=== PATIENT | male | born 1960 | race Caucasian/White ===

== ENCOUNTER 2022-01-30 08:22 | Emergency (ER) | payer MEDICARE, OTHER ==
[~2022-01-30] VITALS: Ht 170.2 cm; Wt 104.3 kg
[~2022-01-30 08:22] MED LIST: ACET-3457; CLON1TAB1; METH-1878 PO
[2022-01-30 08:28] VITALS: BP 145/80
--- NOTE | 2022-01-30 08:32 | NUR ---
pt ambulated to bed 12
--- NOTE | 2022-01-30 08:43 | NUR ---
pt c/o sob wih anxiety since this am, breathing unlabored. 92% on ra. placed on bedside monitor. pending er md dillon.
[2022-01-30] MEDS ORDERED: ALBUTEROL SULFATE/IPRATROPIU 3 ML SOL IH ONE (09:05)
[2022-01-30] MEDS ORDERED: KETOROLAC 30 MG/ML VIAL IM ONE (09:05)
[2022-01-30 09:43] LABS: BASOPHILS % (AUTO) 0.4 % (0.0-2.0); EOSINOPHILS % (AUTO) 0.1 % (0.0-4.0); HEMATOCRIT 37.1 % (36-52); HEMOGLOBIN 12.3 g/dL (12.0-18.0); LYMPHOCYTES # (AUTO) 0.8 K/uL (2.0-11.5); LYMPHOCYTES % (AUTO) 12.9 % (20.5-51.1); MEAN CORPUSCULAR HEMOGLOBIN 28 pg (27-31); MEAN CORPUSCULAR HGB CONC 33 g/dL (33-37); MEAN CORPUSCULAR VOLUME 83.6 fL (80-94); MONOCYTES # (AUTO) 0.4 K/uL (0.8-1.0); MONOCYTES % (AUTO) 7.2 % (1.7-9.3); NEUTROPHILS # (AUTO) 4.8 K/uL (1.8-7.7); NEUTROPHILS % (AUTO) 79.4 % (42.2-75.2); PLATELET COUNT (AUTO) 403 K/uL (140-450); RED BLOOD CELL COUNT(AUTO) 4.43 MIL/uL (4.20-6.10)
[2022-01-30 10:11] LABS: ALBUMIN 3.3 g/dL (3.4-5.0); CARBON DIOXIDE 26.1 mmol/L (21-32); POTASSIUM 4.1 mmol/L (3.5-5.1); TOTAL BILIRUBIN 0.4 mg/dL (0.0-1.0)
[2022-01-30] MEDS ORDERED: PRED20TA5 PO (10:54)
[2022-01-30] MEDS ORDERED: AZIT250T4 PO (10:54)
[2022-01-30 12:51] VITALS: BP 143/70
--- NOTE | 2022-01-30 12:51 | NUR ---
Patient discharged with v/s stable. Written and verbal after care instructions given and explained. Patient alert, oriented and verbalized understanding of instructions. Ambulatory with steady gait. All questions addressed prior to discharge. ID band removed. Patient advised to follow up with PMD. Rx of azithromycin, prednisone (sent) given. Patient educated on indication of medication including possible reaction and side effects. Opportunity to ask questions provided and answered. copy of labs and imaging given in packet
--- NOTE | 2022-01-30 12:52 | NUR ---
Dunia mccoy in ED - 01/30/22 at 1252 by [id number] Patient discharged with v/s stable. Written and verbal after care instructions given and explained. Patient verbalized understanding. Ambulatory with steady gait. All questions addressed prior to discharge. Advised to follow up with PMD.
== END 2022-01-30 12:51 | disposition home or self-care (01) ==
LOC: MED 08:22
DX: J40 Bronchitis, not specified as acute or chronic (principal); Z20.822 Contact with and (suspected) exposure to COVID-19; I10 Essential (primary) hypertension; F17.210 Nicotine dependence, cigarettes, uncomplicated
CPT/HCPCS: 36415; 71045; 80053; 83880; 84484; 85025; 87426; 93005; 94640; 96372; 99285; J1885

== ENCOUNTER 2022-02-09 10:45 | Emergency (ER) | payer MEDICARE, OTHER ==
[~2022-02-09] VITALS: Ht 170.2 cm; Wt 104.3 kg
[2022-02-09 10:45] VITALS: BP 143/69
[~2022-02-09 10:45] MED LIST changes: +AZIT250T4 PO; +PRED20TA5 PO
--- NOTE | 2022-02-09 10:52 | NUR ---
PT W/C ASSISTED TO ER BED 11
--- NOTE | 2022-02-09 10:58 | NUR ---
jose miguel swabbed at this time
--- NOTE | 2022-02-09 11:00 | NUR ---
61 y/o male bib friend, wheelchair assisted to bed, c/o general weakness, headache, cough, worsening sob this morning with anxiety. pt states he was seen here on 01/30 for acute bronchitis. denies nausea, vomiting, diarrhea. skin is pink/warm/dry, pt has redness on buttocks area and bl lower legs. a&o x4. lungs clear bl, heart rate even and regular. pt denies dysuria, hematuria, urinary frequency or retention, or anyone sick in the household with the same symptoms. pt states pain is 10/10 at this time. vss. patient positioned for comfort. hob elevated. bed down. ermd made aware of pt. pmh: anxiety, htn nka med: denies
--- NOTE | 2022-02-09 11:09 | NUR ---
RAD AT BEDSIDE
--- NOTE | 2022-02-09 11:11 | NUR ---
X-Ray at bedside.
[2022-02-09 11:57] LABS: BASOPHILS % (AUTO) 0.7 % (0.0-2.0); EOSINOPHILS % (AUTO) 0.5 % (0.0-4.0); HEMATOCRIT 38.1 % (36-52); HEMOGLOBIN 12.5 g/dL (12.0-18.0); MEAN CORPUSCULAR HEMOGLOBIN 28 pg (27-31); MEAN CORPUSCULAR HGB CONC 33 g/dL (33-37); MEAN CORPUSCULAR VOLUME 83.8 fL (80-94); MONOCYTES # (AUTO) 0.5 K/uL (0.8-1.0); MONOCYTES % (AUTO) 6.7 % (1.7-9.3); NEUTROPHILS # (AUTO) 5.7 K/uL (1.8-7.7); NEUTROPHILS % (AUTO) 78.1 % (42.2-75.2); PLATELET COUNT (AUTO) 364 K/uL (140-450); RED BLOOD CELL COUNT(AUTO) 4.55 MIL/uL (4.20-6.10); RED CELL DISTRIBUTION WIDTH 15.6 % (11.6-13.7); WHITE BLOOD COUNT (AUTO) 7.3 K/uL (4.8-10.8)
[2022-02-09] MEDS ORDERED: LORazepam 1 MG TAB PO ONE (12:10)
[2022-02-09 12:15] LABS: ALBUMIN 3.4 g/dL (3.4-5.0); ANION GAP 7.2 (8-16); CARBON DIOXIDE 33.2 mmol/L (21-32); POTASSIUM 4.4 mmol/L (3.5-5.1); TOTAL BILIRUBIN 0.3 mg/dL (0.0-1.0)
[2022-02-09] MEDS ORDERED: [UNRECOGNIZED DRUG - CODE] PO (12:41)
--- NOTE | 2022-02-09 13:04 | NUR ---
Patient discharged with v/s stable. Written and verbal after care instructions FOR SOB AND LIVING W/ ANXIETY given and explained. Patient alert, oriented and verbalized understanding of instructions. Ambulatory with steady gait. All questions addressed prior to discharge. ID band removed. Patient advised to follow up with PMD. Rx of HYDROXYZINE HCL given. Opportunity to ask questions provided and answered.
== END 2022-02-09 13:05 | disposition home or self-care (01) ==
LOC: MED 10:45
DX: F41.9 Anxiety disorder, unspecified (principal); Z20.822 Contact with and (suspected) exposure to COVID-19; R06.02 Shortness of breath; J45.909 Unspecified asthma, uncomplicated; I10 Essential (primary) hypertension; F17.200 Nicotine dependence, unspecified, uncomplicated
CPT/HCPCS: 36415; 71045; 80053; 83880; 84484; 85025; 87426; 93005; 99285; Q0092

== ENCOUNTER 2022-03-27 21:49 | Emergency (ER) | payer OTHER ==
[~2022-03-27] VITALS: Ht 172.7 cm; Wt 106.6 kg
[~2022-03-27 21:49] MED LIST changes: +[UNRECOGNIZED DRUG - CODE] PO
[2022-03-27 22:30] VITALS: BP 176/84
--- NOTE | 2022-03-27 22:33 | NUR ---
TO LOBBY A/W BED AMBULATORY
--- NOTE | 2022-03-28 01:17 | NUR ---
PT TAKEN TO BED 3
[2022-03-28] MEDS ORDERED: CLON0.2T16 PO (01:26)
[2022-03-28] MEDS ORDERED: MORPHINE SULFATE 4 MG/ML SYR IVP ONE (01:40)
[2022-03-28] MEDS ORDERED: ONDANSETRON 4 MG/2 ML VIAL IVP ONE (01:40)
[2022-03-28] MEDS ORDERED: ALBUTEROL SULFATE/IPRATROPIU 3 ML SOL IH ONE (02:05)
[2022-03-28] MEDS ORDERED: MORPHINE SULFATE 4 MG/ML SYR IM ONE (03:05)
[2022-03-28] MEDS ORDERED: ONDANSETRON 4 MG ODT PO ONE (03:10)
--- NOTE | 2022-03-28 03:42 | NUR ---
Patient resting with eyes closed, snoring. Patient has no c/p pain or s/s of distress, skin intact, a/ox4.
[2022-03-28 04:47] LABS: BASOPHILS % (AUTO) 0.3 % (0.0-2.0); EOSINOPHILS % (AUTO) 0.2 % (0.0-4.0); HEMATOCRIT 32.3 % (36-52); HEMOGLOBIN 10.9 g/dL (12.0-18.0); LYMPHOCYTES # (AUTO) 0.5 K/uL (2.0-11.5); LYMPHOCYTES % (AUTO) 5.3 % (20.5-51.1); MEAN CORPUSCULAR HEMOGLOBIN 28 pg (27-31); MEAN CORPUSCULAR HGB CONC 34 g/dL (33-37); MONOCYTES # (AUTO) 0.5 K/uL (0.8-1.0); MONOCYTES % (AUTO) 5.7 % (1.7-9.3); NEUTROPHILS # (AUTO) 8.3 K/uL (1.8-7.7); PLATELET COUNT (AUTO) 262 K/uL (140-450); RED BLOOD CELL COUNT(AUTO) 3.94 MIL/uL (4.20-6.10); RED CELL DISTRIBUTION WIDTH 13.5 % (11.6-13.7); WHITE BLOOD COUNT (AUTO) 9.4 K/uL (4.8-10.8)
--- NOTE | 2022-03-28 04:51 | NUR ---
ER physician verbally informed of 0450 vital signs. ER physician verbalized understanding, no new orders.
[2022-03-28 05:06] LABS: ALBUMIN 2.7 g/dL (3.4-5.0); ASPARTATE AMINOTRANSFERASE 27 U/L (15-37); CARBON DIOXIDE 28.8 mmol/L (21-32); CHLORIDE 84 mmol/L (98-107); CREATININE 0.9 mg/dL (0.6-1.3); GFR ARICAN-AMERICAN 110 mL/min (>90); GLUCOSE 113 mg/dL (74-106); LIPASE 39 U/L (73-393); POTASSIUM 4.8 mmol/L (3.5-5.1); TOTAL BILIRUBIN 0.5 mg/dL (0.0-1.0); UREA NITROGEN, BLOOD 12 mg/dL (7-18)
[2022-03-28 05:08] LABS: NEUTROPHILS % (AUTO) 88.5 % (42.2-75.2)
[2022-03-28 05:19] LABS: SODIUM SERUM 118 mmol/L (136-145)
--- NOTE | 2022-03-28 05:50 | NUR ---
Informed by patient, "I don't want to stay. I have to go do heroin." Patient educated on need to stay and be admitted. Patient still declines stay in hospital and states, "No. I want to go. I have to go do heroin or I will be in pain." Patient signed AMA form. Dr. Haddad informed by patient of patinet wanting to leave AMA. Patient and Dr. Haddad signed AMA form.
[2022-03-28 05:55] VITALS: BP 157/85
--- NOTE | 2022-03-28 05:56 | NUR ---
Patient does not wish to proceed with medical care recommended by Dr. Haddad. Patient given information related to possible complications, up to and including , which could occur as a result of leaving hospital at this time. Patient verbalizes understanding of risks involved leaving against medical advice. Patient has signed AMA form.
== END 2022-03-28 05:42 | disposition left against medical advice (07) ==
LOC: MED 21:49
DX: E87.1 Hypo-osmolality and hyponatremia (principal); R51.9 Headache, unspecified; R07.89 Other chest pain; J45.909 Unspecified asthma, uncomplicated; I10 Essential (primary) hypertension; F41.9 Anxiety disorder, unspecified; F17.210 Nicotine dependence, cigarettes, uncomplicated; Z79.899 Other long term (current) drug therapy
CPT/HCPCS: 36415; 71045; 80053; 83690; 84484; 85025; 93005; 94640; 96372; 99285; J2270; Q0092; Q0162

== ENCOUNTER 2022-05-13 09:35 | Emergency (ER) | payer MEDICARE, OTHER ==
[~2022-05-13] VITALS: Ht 175.3 cm; Wt 90.7 kg
[~2022-05-13 09:35] MED LIST changes: -ACET-3457; -AZIT250T4 PO; +CLON0.2T16 PO; -CLON1TAB1; -METH-1878 PO; -PRED20TA5 PO
[2022-05-13 09:49] VITALS: BP 134/65
--- NOTE | 2022-05-13 11:38 | NUR ---
PT AMBULATED WITH STEADY GAIT TO BED 3
--- NOTE | 2022-05-13 14:30 | NUR ---
Patient discharged with v/s stable. Written and verbal after care instructions given and explained. Patient verbalized understanding. Ambulatory with steady gait. All questions addressed prior to discharge. Advised to follow up with PMD.
== END 2022-05-13 14:34 | disposition home or self-care (01) ==
LOC: MED 09:35
DX: I73.9 Peripheral vascular disease, unspecified (principal); J45.909 Unspecified asthma, uncomplicated; I10 Essential (primary) hypertension; F17.210 Nicotine dependence, cigarettes, uncomplicated; Z79.899 Other long term (current) drug therapy
CPT/HCPCS: 93922; 93925; 93970; 99284; Q0092

== ENCOUNTER 2022-06-10 13:02 | Emergency (ER) | payer OTHER ==
[~2022-06-10] VITALS: Ht 170.2 cm; Wt 119.7 kg
[2022-06-10 13:09] VITALS: BP 175/78
--- NOTE | 2022-06-10 13:24 | NUR ---
PT W/C ASSISTED TO ER BED 1
--- NOTE | 2022-06-10 13:45 | NUR ---
61 Y/O MALE C/O 2 LARGE ULCERS TO BILATERAL LATERAL LOWER EXTREMETIES X1 MONTH, +ODOROUS +FULL THICKNESS TO BOTH BILATERAL ULERS. PT ALSO HAS SMALL ULCERS TO BILATERAL UPPER LEGS AND BUTTOCK. +1 PITTING EDEMA TO BILATERAL LEGS. PT REPORTS SOB THIS MORNING AND TOOK HIS INHALER. DENIES SOB NOW. SPO2 98% RA. ULCERS TO UPPER LEG +BLOODY DRAINAGE. DENIES FEVER/CHILLS. PT STATES "IT SMELLS LIKE GANGRENE". PT WAS SEEN HERE 05/13/22 AND WAS D/C WITH DIAGNOSIS OF PVD. PT DENIES SEEING A DOCTOR SINCE. PT REPORTS DAILY HEROIN USE, LAST USE THIS AM. PT IN GOWN, ON CARDIAC/O2 MONITOR. PT A/O X4 WITH EVEN AND UNLABORED RESPIRATIONS PMH: HTN, HEP B, ANXIETY, ASTHMA NKDA
[2022-06-10] MEDS ORDERED: VANCOMYCIN 1,000 MG in DEXTROSE 5% 250 ML IV ONE (14:15)
--- NOTE | 2022-06-10 14:32 | NUR ---
UNABLE TO OBTAIN IV ACCESS. DR CURTIS MADE AWARE. ULTRASOUND SET UP FOR ERMD
--- NOTE | 2022-06-10 15:00 | NUR ---
Patient noted to have existing wounds upon arrival to ER. Photos taken of wound and placed in chart. WONDS NOT COVERED PER DR CURTIS. Physician informed.
[2022-06-10 16:36] LABS: BASOPHILS # (AUTO) 0.1 K/uL (0.00-0.22); BASOPHILS % (AUTO) 0.9 % (0.0-2.0); EOSINOPHILS # (AUTO) 0.1 K/uL (0-0.4); HEMATOCRIT 32.5 % (36-52); HEMOGLOBIN 10.9 g/dL (12.0-18.0); LYMPHOCYTES # (AUTO) 0.7 K/uL (2.0-11.5); LYMPHOCYTES % (AUTO) 6.1 % (20.5-51.1); MEAN CORPUSCULAR HEMOGLOBIN 27 pg (27-31); MEAN CORPUSCULAR HGB CONC 34 g/dL (33-37); MEAN CORPUSCULAR VOLUME 79.5 fL (80-94); MONOCYTES # (AUTO) 0.5 K/uL (0.8-1.0); MONOCYTES % (AUTO) 4.2 % (1.7-9.3); NEUTROPHILS # (AUTO) 10.4 K/uL (1.8-7.7); NEUTROPHILS % (AUTO) 87.8 % (42.2-75.2); PLATELET COUNT (AUTO) 333 K/uL (140-450); RED BLOOD CELL COUNT(AUTO) 4.08 MIL/uL (4.20-6.10); RED CELL DISTRIBUTION WIDTH 14.3 % (11.6-13.7); WHITE BLOOD COUNT (AUTO) 11.8 K/uL (4.8-10.8)
[2022-06-10] MEDS ORDERED: VANCOMYCIN 1,000 MG VIAL ONE (16:38)
[2022-06-10 16:59] LABS: ANION GAP 10.9 (8-16); CARBON DIOXIDE 30.1 mmol/L (21-32); TOTAL BILIRUBIN 0.4 mg/dL (0.0-1.0)
[2022-06-10] MEDS ORDERED: HYDROcodone/APAP 10/325 MG 1 TAB TAB PO PRN (18:55)
--- NOTE | 2022-06-10 19:04 | NUR ---
PT REFUSING TO SIGN CONSENT FOR TRANSFER AND STATED HE WANTS TO LEAVE AMA. DR CURTIS AT BEDSIDE EXPLAINING AMA
--- NOTE | 2022-06-10 19:05 | NUR ---
Patient does not wish to proceed with medical care recommended by KIRSTEN. Patient given information related to possible complications, up to and including , which could occur as a result of leaving hospital at this time. Patient verbalizes understanding of risks involved leaving against medical advice. Patient has signed AMA form.
[2022-06-10] MEDS ORDERED: CEPH-588 PO (19:07)
[2022-06-10] MEDS ORDERED: SULF-58 PO (19:07)
--- NOTE | 2022-06-10 19:15 | NUR ---
REPORT GIVEN TO TONJA MALDONADO, TRANSFER OF CARE AT THIS TIME
[2022-06-10 19:26] VITALS: BP 187/90
--- NOTE | 2022-06-10 19:28 | NUR ---
Patient discharged with v/s stable. Written and verbal after care instructions given and explained. Patient alert, oriented and verbalized understanding of instructions. Ambulatory with steady gait. All questions addressed prior to discharge. ID band removed. Patient advised to follow up with PMD. Rx SENT TO PHARMACY. Patient educated on indication of medication including possible reaction and side effects. Opportunity to ask questions provided and answered.
== END 2022-06-10 19:28 | disposition left against medical advice (07) ==
LOC: MED 13:02
DX: L03.116 Cellulitis of left lower limb (principal); L03.115 Cellulitis of right lower limb; I73.9 Peripheral vascular disease, unspecified; E87.1 Hypo-osmolality and hyponatremia; F11.10 Opioid abuse, uncomplicated; Z20.822 Contact with and (suspected) exposure to COVID-19; J45.909 Unspecified asthma, uncomplicated; I10 Essential (primary) hypertension; Z79.899 Other long term (current) drug therapy; Z71.6 Tobacco abuse counseling; F41.9 Anxiety disorder, unspecified; F17.210 Nicotine dependence, cigarettes, uncomplicated
CPT/HCPCS: 36415; 80053; 83605; 85025; 87040; 87426; 96365; 96366; 99285; J3370; 87186

== ENCOUNTER 2022-06-21 19:12 | Inpatient (IN) | payer OTHER ==
[~2022-06-21] VITALS: Ht 170.2 cm; Wt 115.2 kg
[~2022-06-21 19:12] MED LIST changes: +CEPH-588 PO; +SULF-58 PO
[2022-06-21 19:19] VITALS: BP 158/74
--- NOTE | 2022-06-21 19:36 | NUR ---
Dunia mccoy in [facility] - 06/21/22 at 1938 by CHRISS PT TAKEN TO BED 7
--- NOTE | 2022-06-21 19:48 | NUR ---
PT TAKEN TO BED 7
--- NOTE | 2022-06-21 19:50 | NUR ---
Dr. Adhikari examining patient.
[2022-06-21] MEDS ORDERED: ASPIRIN 325 MG TAB PO ONE (20:05)
--- NOTE | 2022-06-21 20:10 | NUR ---
LAB UNABLE TO DRAW LABS. ERMD NOTIFIED.
--- NOTE | 2022-06-21 20:15 | NUR ---
UNABLE TO START PIV D/T PT BEING A HARD STICK. ERMD NOTIFIED. US PIV TO BE INSERTED.
--- NOTE | 2022-06-21 21:13 | NUR ---
DR. GRIGGS AT BEDSIDE
[2022-06-21] MEDS ORDERED: ALBUTEROL SULFATE/IPRATROPIU 3 ML SOL IH ONE (21:40)
--- NOTE | 2022-06-21 21:40 | NUR ---
Respiratory Therapist at bedside for respiratory intervention.
[2022-06-21 21:41] LABS: BASOPHILS # (AUTO) 0.1 K/uL (0.00-0.22); BASOPHILS % (AUTO) 1.2 % (0.0-2.0); EOSINOPHILS # (AUTO) 0.2 K/uL (0-0.4); EOSINOPHILS % (AUTO) 2.2 % (0.0-4.0); HEMATOCRIT 28.1 % (36-52); HEMOGLOBIN 9.2 g/dL (12.0-18.0); LYMPHOCYTES # (AUTO) 1.2 K/uL (2.0-11.5); LYMPHOCYTES % (AUTO) 11.6 % (20.5-51.1); MEAN CORPUSCULAR HEMOGLOBIN 26 pg (27-31); MEAN CORPUSCULAR HGB CONC 33 g/dL (33-37); MEAN CORPUSCULAR VOLUME 79.5 fL (80-94); MONOCYTES # (AUTO) 0.9 K/uL (0.8-1.0); MONOCYTES % (AUTO) 8.3 % (1.7-9.3); NEUTROPHILS # (AUTO) 8.1 K/uL (1.8-7.7); NEUTROPHILS % (AUTO) 76.7 % (42.2-75.2); PLATELET COUNT (AUTO) 370 K/uL (140-450); RED BLOOD CELL COUNT(AUTO) 3.53 MIL/uL (4.20-6.10); RED CELL DISTRIBUTION WIDTH 13.9 % (11.6-13.7); WHITE BLOOD COUNT (AUTO) 10.6 K/uL (4.8-10.8)
[2022-06-21 22:05] LABS: ALBUMIN 2.5 g/dL (3.4-5.0); ANION GAP 10.2 (8-16); CARBON DIOXIDE 31.9 mmol/L (21-32); CREATININE 1.2 mg/dL (0.6-1.3); POTASSIUM 5.1 mmol/L (3.5-5.1); TOTAL BILIRUBIN 0.2 mg/dL (0.0-1.0)
--- NOTE | 2022-06-21 23:15 | NUR ---
Pt does not wish to remove his pants. Pt in hospital gown.
[2022-06-21] MEDS ORDERED: NACL 0.9% 1,000 ML IV ONE (23:30)
[2022-06-22] MEDS ORDERED: ACETAMINOPHEN 325 MG TAB PO PRN (00:50)
[2022-06-22] MEDS ORDERED: HYDROcodone/APAP 5/325 MG 1 TAB TAB PO PRN (00:50)
[2022-06-22] MEDS ORDERED: LORazepam 2 MG/ML VIAL IVP PRN (00:50)
[2022-06-22] MEDS ORDERED: ONDANSETRON 4 MG/2 ML VIAL IVP PRN (00:50)
--- NOTE | 2022-06-22 03:03 | NUR ---
PT UNABLE TO REMEMBER MEDICATION AND DOSAGE.
--- NOTE | 2022-06-22 04:40 | NUR ---
Patient noted to have existing wounds upon arrival to ER. Photos taken of wound and placed in chart. Wound covered with dressing. Physician informed.
--- NOTE | 2022-06-22 07:10 | NUR ---
RECEIVED REPORT FROM ER NURSE. NO SIGNS OF DISTRESS OR LABORED BREATHING. PT IS A&OX4, LUNGS SOUND HAVE SOME WHEEZING BUT PT IS ON RA, VITALS ARE STABLE AT THIS TIME, AND SKIN HAS ULCERS ALL OVER. PT HAS ULCER ON HIS BLE, BUTTOCKS AND LOWER BACK. PT HAS A 18G IV IN HIS R IJ THAT IS PATEN, INTACT AND SALINE LOCKED. PT TAKES METHADONE AT HOME. TWO SIDE RAILS UP, CALL LIGHT WITHIN REACH, BED IN LOW POSITION, AND SAFETY MEASURE MET AT THIS TIME. WILL CONTINUE TO MONITOR.
[2022-06-22 08:00] VITALS: BP 176/54
[2022-06-22] MEDS: ENOXAPARIN 40 MG/0.4 ML SYR SUBQ SCH (08:47)
--- NOTE | 2022-06-22 10:37 | NUR ---
PATIENT HAS BEEN SCREENED AND CATEGORIZED LOW NUTRITION RISK. PATIENT WILL BE SEEN WITHIN 7 DAYS OF ADMISSION. 06/29/22 REVIEWED BY AISHA PA RD
[2022-06-22] MEDS: amLODIPine 5 MG TAB PO SCH (10:53)
[2022-06-22] MEDS: MORPHINE SULFATE 2 MG/ML SYR IVP PRN ×2 (11:33→20:30)
--- NOTE | 2022-06-22 11:52 | NUR ---
DC PLANNIN YRS OLD MALE PATIENT WAS ADMITTED FROM HOME WITH A DX OF CHEST PAIN. PATIENT HAS A HX OF HTN , PVD PRIOR HISTORY OF IV DRUG USE. CXR SHOWED NO RADIOGRAPHIC EVIDENCE OF ACUTE CARDIOPULMONARY DISEASE. RAPID COVID TEST NEGATIVE. TROPONIN NEGATIVE X 2 ADMINISTERED IVF, MORPHINE FOR CHEST PAIN. CONSULTED WITH CARDIO. DC PLAN TO GO HOME WHEN STABLE. CM TO FOLLOW CALLED [facility] [phone] SPOKE WITH HAMMAD AGUAYO UPDATED PT'S CLINICAL AND FAXED THE PAPERWORK TO [phone]. Addendum: 06/24/22 at 1600 by Sylwia Carias RN DC PLANNING: PATIENT HAS A DC ORDER TO GO HOME WITH HOME HEALTH FOR WOUND CARE. FAXED TO [facility] [phone] CM TO FOLLOW
[2022-06-22 12:00] VITALS: BP 157/73
[2022-06-22 16:00] VITALS: BP 157/76
[2022-06-22] MEDS: METHADONE 10 MG TAB PO SCH (16:37)
[2022-06-22] MEDS ORDERED: VANCOMYCIN PER PHARMACY MC PRN (18:05)
[2022-06-22 18:12] LABS: ALBUMIN 2.8 g/dL (3.4-5.0); ANION GAP 12.6 (8-16); CARBON DIOXIDE 28.7 mmol/L (21-32); CREATININE 1.1 mg/dL (0.6-1.3); POTASSIUM 5.3 mmol/L (3.5-5.1); TOTAL BILIRUBIN 0.2 mg/dL (0.0-1.0)
--- NOTE | 2022-06-22 19:15 | NUR ---
RECEIVED PT FROM DAYSHIFT NURSE FOR CONTINUITY OF CARE. PT ALERT AND ORIENTED X 4, ON ROOM AIR. MULTIPLE WOUNDS ON BILATERAL BUTTOCKS, BILATERAL LOWER LEGS AND R TOE.PT SR ON TELE. IV ON R IJ G 18. PT IS STABLE. POC DISCUSSED.ALL PRECAUTIONS IN PLACE. WILL CONTINUE TO MONITOR.
[2022-06-22 20:00] VITALS: BP 147/64
[2022-06-22] MEDS ORDERED: cefTRIAXone 2,000 MG in DEXTROSE 5% 100 ML IV SCH ×2 (20:00→20:30)
--- NOTE | 2022-06-22 20:35 | NUR ---
PT COMPLAINING OF PAIN ON BACK 02/15. PRN MORPHINE GIVEN.PT TOLERATED WELL.WILL CONTINUE TO MONITOR.
[2022-06-22] MEDS: VANCOMYCIN HCL 1.25 GM in DEXTROSE 5% 250 ML IV SCH (21:27)
--- NOTE | 2022-06-22 21:30 | NUR ---
PT AMBULATED WITH ASSIST TO RESTROOM. PT TOLERATE DWELL. WILL CONTINUE TO MONITOR.
[2022-06-23] VITALS (7 sets, daily range): BP systolic 122–169; BP diastolic 65–78
--- NOTE | 2022-06-23 | NUR ---
[employer] INFORMED ME THAT PATIENT DOESN'T TO DO THE CT TODAY.AND WANTS TO DO IT IN THE MORNING INSTEAD.
--- NOTE | 2022-06-23 01:00 | NUR ---
PATIENT WAS PLACED ON RECLINER FOR COMFORT.
--- NOTE | 2022-06-23 02:15 | NUR ---
PATIENT WANTS TO BE PLACED BACK TO BED. PT ASSISTED. PT TOLERATED WELL.ALL PRECAUTIONS IN PLACE.
[2022-06-23] MEDS: MORPHINE SULFATE 2 MG/ML SYR IVP PRN ×2 (02:29→23:22)
--- NOTE | 2022-06-23 02:40 | NUR ---
PT COMPLAINING OF PAIN ON BACK 02/15. PRN MORPHINE GIVEN.PT TOLERATED WELL.WILL CONTINUE TO MONITOR.
--- NOTE | 2022-06-23 03:55 | NUR ---
PATIENT IS RESTLESS. PRN ATIVAN GIVEN. PT TOLERATED WELL. O2 SAT AT 97%.
--- NOTE | 2022-06-23 05:54 | NUR ---
AUTOMATED WEAVER INFORMED ME THAT PATIENT DOESN'T WANT TO GET BLOOD DRAWN. EXPLAINED IMPORTANCE OF BLOOD DRAW. WILL CONTINUE TO MONITOR.PT VERBALIZED UNDERSTANDING.
--- NOTE | 2022-06-23 07:30 | NUR ---
RECEIVED BEDSIDE REPORT FROM NIGHTSHIFT ERICA YOUNG FOR CONTINUITY OF CARE. PT IS A&OX4, ON ROOM AIR. PT IS RESTING W/O S/S OF DISTRESS. PT HAS MIDLINE ON THE RIGHT UPPER ARM, PATENT & INTACT. PTS BED IS IN LOWEST POSITION, CALL LIGHT WITHIN REACH.
[2022-06-23] MEDS ORDERED: METHADONE 10 MG TAB PO SCH (09:00)
[2022-06-23] MEDS: ENOXAPARIN 40 MG/0.4 ML SYR SUBQ SCH (09:11)
[2022-06-23] MEDS: amLODIPine 5 MG TAB PO SCH (09:17)
[2022-06-23] MEDS: ASPIRIN 81 MG TAB.CHEW PO SCH (09:18)
[2022-06-23] MEDS: METHADONE 10 MG TAB PO SCH (09:18)
[2022-06-23] MEDS: VANCOMYCIN HCL 1.25 GM in DEXTROSE 5% 250 ML IV SCH ×2 (09:18→21:00)
--- NOTE | 2022-06-23 15:17 | NUR ---
DC PLANNING SW MET WITH PT AT BEDSIDE TO COMPLETE ASSESSMENT. PT REPORTS RESIDING ALONE AT THE ADDRESS LISTED ON FILE. PT IDENTIFIED NAHUM MATTHEWER, AND DEJAN LOWE, BROTHER, EMERGENCY CONTACTS. PATIENT REPORTS MEETING WITH PCP, DR SEARS, NEEDED, LAST VISIT 1 WEEK AGO. PT REPORTS MEDICATION COMPLIANCE AND DENIES BARRIERS IN ACCESS TO MEDICATIONS. PATIENT REPORTS MEDICATION IS DELIVERED TO HIS HOME FROM [facility] IN [place]. PATIENT REPORTS BEING AMBULATORY WITH NO DME REPORTED. PATIENT REPORTS THAT HE REQUIRES ASSISTANCE WITH ADL'S. PATIENT HAS [facility] CAREGIVER, ROSEMARY WHO PROVIDES CARE M-SA FOR 3-4 HRS/DAILY. PT REPORTS HE RECEIVES ROUGHLY 60HRS/MONTH. PT DENIES MH/SA HX. PT DENIES HIS OF DIABETES, DIALYSIS [place], SNF PLACEMENT AND HH SERVICES. PT REPORTS ADEQUATE FOOD IN THE HOME. PT REPORTS DC PLAN IS TO RETURN HOME WITH FRIEND S OR FAMILY PROVIDING TRANSPORTATION, WHEN MEDICALLY STABLE. SW INQUIRED ON RESOURCES NEEDED, PT DECLINED. Addendum: 06/23/22 at 1518 by Jesus BARRY Amended: Links added.
--- NOTE | 2022-06-23 19:25 | NUR ---
ENDORSED PT TO NIGHTSHIFT ERICA CONTRERAS. PT IN STABLE CONDITION, NO S/S OF DISTRESS.
--- NOTE | 2022-06-23 19:26 | NUR ---
RECD. RESTING IN BED, AWAKE, A/OX4, AMBULATORY TO THE BATHROOM RESPIRATION EVEN AND UNLABORED. IV OF NS INFUSING AT 10 ML/HR, RIGHT UPPER ARM MIDLINE. ON IV ANTIBIOTICS. NO APPETITE TO EAT. ENCOURAGED PATIENT TO EAT DINNER THAT IS AT THE BEDSIDE TABLE BUT REFUSED, STATED HE WANTS BURRITO. DENIES PAIN 0/10.
--- NOTE | 2022-06-23 20:00 | NUR ---
Patient's Plan of Care was discussed and reviewed with PROJECT MANAGEMENT INSTRUCTOR: BEN FINN
--- NOTE | 2022-06-23 20:27 | NUR ---
INFORMED DR. STEVENSON, TO PLEASE ORDER BENADRYL FOR THIS PT BECAUSE IN ER WHEN THEY GIVE VANCOMYCIN PT GETS ITCHY AND PT DOES NOT LIKE TO TAKE IT TONIGHT WITHOUT BENADRYL. IT IS THE FIRST TIME PATIENT GET VANCOMYCIN. Addendum: 06/24/22 at 0404 by Lori Allison LVN CORRECTION: THIS NOTES DOES NOT BELONG TO THIS PATIENT.
--- NOTE | 2022-06-24 | NUR ---
SLEEPING COMFORTABLY IN BED, RESPIRATION EVEN AND UNLABORED.
--- NOTE | 2022-06-24 03:55 | NUR ---
WITH ANXIETY, RESTLESSNESS. MEDICATED WITH ATIVAN PER MD ORDER BY ERICA ADAIR.
[2022-06-24 04:00] VITALS: BP 167/79
--- NOTE | 2022-06-24 04:55 | NUR ---
NO ANXIETY NOTED, SLEEPING COMFORTABLY IN BED.
--- NOTE | 2022-06-24 07:00 | NUR ---
CONDITION REMAIN STABLE. WILL ENDORSE TO AM NURSE FOR CONTINUITY OF CARE.
[2022-06-24 08:00] VITALS: BP 173/77
[2022-06-24] MEDS: VANCOMYCIN HCL 1.25 GM in DEXTROSE 5% 250 ML IV SCH (09:11)
[2022-06-24] MEDS: ASPIRIN 81 MG TAB.CHEW PO SCH (09:15)
[2022-06-24] MEDS: amLODIPine 5 MG TAB PO SCH (09:16)
[2022-06-24] MEDS: METHADONE 10 MG TAB PO SCH (09:17)
[2022-06-24] MEDS: ENOXAPARIN 40 MG/0.4 ML SYR SUBQ SCH (09:18)
--- NOTE | 2022-06-24 09:45 | NUR ---
WOUND CARE NOTE: WOUND ASSESSMENT DONE TO THIS 61 YO PT. ADMITTED WITH MULTIPLE CHRONIC WOUNDS TO BLE. PT ALSO ADMITTED WITH A PRESSURE INJURY STAGE 2 TO COCCYX, PER PT. MAINLY FROM FRICTION AND SITTING UP TOO LONG. PER PT. HE IS CONTINENT OF B&B. PT. DENY ANY HX OF SKIN CANCER. BLE ANTERIOR AND POSTERIOR WITH MULTIPLE DRY STABLE SCABS WITH LARGEST TO LEFT THIGH 3X2CM. YAN-WOUND SKIN RASHES. POC DISCUSSED WITH PT AND DR. STEVENSON RECOMMEND SURGEON CONSULT BLE DEBRIDEMENT. PT. VERBALIZES UNDERSTANDING, HX ANTERIOR ULTRASOUND 05/2022 EVIDENCE OF PAD. -PRESSURE INJURY STAGE 2 COCCYX 2X3CM SUPERFICIAL DEPTH, WOUND BED 100% PINK, MOIST, NO ODOR, YAN-WOUND SKIN MOIST AND INTACT -PAD RLE 8X5X0.3CM IRREGULAR SHAPE. WOUND BED 100% BROWN MOIST SLOUGH TISSUE, WOUND EDGE DRY HARD SCAB WITH YAN-WOUND SKIN DRY SCABBING SKIN. PAIN 2/10 -PAD LLE 5X6X0.2CM OVAL SHAPE. WOUND BED 100% BROWN MOIST SLOUGH TISSUE, WOUND EDGE DRY HARD SCAB WITH YAN-WOUND SKIN DRY SCABBING SKIN.PAIN 10 RECOMMENDATIONS: -SURGEON CONSULT DEBRIDEMENT BLE WOUNDS -PAINT MULTIPLE SCABS TO ANTERIOR AND POSTERIOR UPPER THIGHS AND LOWER LEGS WITH BETADINE SOLUTION WITH GAUZES BID AND VASILE -SACRALCOCCYX, BLE WOUND CLEANSE WITH NS, PAT DRY , APPLY HYDROCOLLOID DRESSING CHANGE Q3 DAYS AND PRN IF SOILING -POSITIONING: TURN AND REPOSITION PATIENT Q 2H OR SOONER USE PILLOWS TO KEEP BONY PROMINENCES FROM DIRECT CONTACT WITH SURFACES USE REPOSITIONING WEDGES TO PROVIDE 30-DEGREE ANGLE FOR SIDE LYING POSITIONS OFFLOADING OR FOAM DRESSING TO ALL TUBING TO PREVENT MEDICAL DEVICES RELATED PRESSURE INJURY -RE-EVALUATING AND MANAGING INCONTINENCE MONITOR SKIN CONDITION DURING POSITION CHANGE DO NOT MASSAGE REDNESS, BONY PROMINENCES, DO NOT USE DONUT-TYPE DEVICES FREQUENT YAN-CARE AND PROVIDE BARRIER CREAMS PRN IF SOILING MOISTURE CONTROL BY OFFER BED RAMSEY/URINAL /ABSORBENT PAD TO WICK AND HOLD MOISTURE. KEEP SKIN DRY AND PROTECT FROM FRICTION -MANAGE FRICTION/SHEAR/MOBILITY KEEP HOB AT THE LOWEST LEVEL OF ELEVATION NO MORE THAN 30 DEGREES UNLESS OTHERWISE CONTRAINDICATED USE LIFT SHEET OR TRANSFER DEVICE TO MOVE PATIENT AND PREVENT LATERAL SHEER. CONSIDER TRAPEZE IF APPROPRIATE PROTECT HEELS, ELBOWS BONY PROMINENCES WITH SKIN BERRIES OR FOAM DRESSING IF EXPOSED TO FRICTION OFFLOAD BILATERAL HEELS BY PLACING PILLOWS UNDER CALVES AT ALL TIMES, UNLESS OTHERWISE CONTRAINDICATED -PRESSURE REDISTRIBUTION SURFACE THERAPY GORAN ISOFLEX MATTRESS -NUTRITION: PLEASE FOLLOW RD RECOMMENDATIONS AND OFFER NUTRITION SUPPLEMENTS IF ORDERED. Addendum: 06/24/22 at 1447 by Annamaria Young RN (Grace) ERROR AND RENAY LERMA DISCUSSED DR. STEVENSON Addendum: 06/24/22 at 1503 by Annamaria Young RN (Grace) SPOKE TO DR. LAZARUS LERMA DISCUSSED, PT WILL NO HAVE SURGEON CONSULT. PER DR. QIU PT. WILL BE DISCHARGED WITH ANTIBIOTIC, HOME HEALTH WOUND CARE AND SEE HIS PRIMARY PHYSICIAN TO FOLLOW UP SURGEON OUTPATIENT.
[2022-06-24 10:12] LABS: BASOPHILS # (AUTO) 0.1 K/uL (0.00-0.22); BASOPHILS % (AUTO) 0.9 % (0.0-2.0); EOSINOPHILS % (AUTO) 0.6 % (0.0-4.0); HEMATOCRIT 45.8 % (36-52); HEMOGLOBIN 14.5 g/dL (12.0-18.0); LYMPHOCYTES # (AUTO) 1.2 K/uL (2.0-11.5); LYMPHOCYTES % (AUTO) 19.5 % (20.5-51.1); MEAN CORPUSCULAR HEMOGLOBIN 26 pg (27-31); MEAN CORPUSCULAR HGB CONC 32 g/dL (33-37); MEAN CORPUSCULAR VOLUME 81.7 fL (80-94); MONOCYTES # (AUTO) 0.3 K/uL (0.8-1.0); MONOCYTES % (AUTO) 5.2 % (1.7-9.3); NEUTROPHILS # (AUTO) 4.6 K/uL (1.8-7.7); NEUTROPHILS % (AUTO) 73.8 % (42.2-75.2); PLATELET COUNT (AUTO) 254 K/uL (140-450); RED CELL DISTRIBUTION WIDTH 14.4 % (11.6-13.7); WHITE BLOOD COUNT (AUTO) 6.2 K/uL (4.8-10.8)
[2022-06-24 10:13] LABS: ANION GAP 12.3 (8-16); CARBON DIOXIDE 27.3 mmol/L (21-32); CREATININE 1.1 mg/dL (0.6-1.3); POTASSIUM 4.6 mmol/L (3.5-5.1)
[2022-06-24 12:00] VITALS: BP 142/76
[2022-06-24] MEDS ORDERED: ASPI81CT95 PO (14:22)
[2022-06-24] MEDS ORDERED: AMLO-3 PO (14:22)
[2022-06-24] MEDS ORDERED: AMOX-999 PO (14:22)
[2022-06-24 15:07] VITALS: BP 143/70
--- NOTE | 2022-06-24 15:42 | NUR ---
DISCHARGE PATIENT IN STABLE CONDITION PER PCP ORDER. DISCHARGE INSTRUCTION GIVEN, DISCHARGE CONSENT SIGNED, MIDLINE, TEL MONITOR BOX, WRIST BAND REMOVED BEFORE PATIENT WHEEL OUT THE FACILITY.
[2022-06-24] MEDS ORDERED: VANCOMYCIN HCL 1.25 GM in DEXTROSE 5% 250 ML IV SCH (21:00)
[2022-06-25] MEDS ORDERED: GAUZE TP SCH (13:00)
[2022-06-27] MEDS ORDERED: HYDROCOLLOID DRESSING TP SCH (13:00)
== END 2022-06-24 15:50 | disposition home or self-care (01) | DRG 602 ==
LOC: MED 19:12 → MTU 06-22 00:53 → OBSVTOIN 06-22 16:36
PROVIDERS: ADMIT Hospitalist; ATTEND Student in an Organized Health Care Education/Training Program
DX: L03.115 Cellulitis of right lower limb (principal); E43 Unspecified severe protein-calorie malnutrition; E87.1 Hypo-osmolality and hyponatremia; R07.89 Other chest pain; I10 Essential (primary) hypertension; Z20.822 Contact with and (suspected) exposure to COVID-19; J45.909 Unspecified asthma, uncomplicated; D64.9 Anemia, unspecified; F11.10 Opioid abuse, uncomplicated; T14.8XXA Other injury of unspecified body region, initial encounter; Z87.891 Personal history of nicotine dependence; Z84.1 Family history of disorders of kidney and ureter; Z68.39 Body mass index [BMI] 39.0-39.9, adult
CPT/HCPCS: 36415; 71045; 73701; 80048; 80053; 80202; 83880; 84484; 85025; 87081; 93005; 94640; 99285; J0696; J1650; J2060; J2270; J3370; J7060; Q0092; Q9967

== ENCOUNTER 2022-07-04 09:50 | Emergency (ER) | payer OTHER ==
[~2022-07-04] VITALS: Ht 17.8 cm; Wt 116.1 kg
[~2022-07-04 09:50] MED LIST changes: +AMLO-3 PO; +AMOX-999 PO; +ASPI81CT95 PO; -CEPH-588 PO; -SULF-58 PO; -[UNRECOGNIZED DRUG - CODE] PO
[2022-07-04 09:52] VITALS: BP 174/94
--- NOTE | 2022-07-04 10:04 | NUR ---
PT AMB TO BED 3.
--- NOTE | 2022-07-04 10:20 | NUR ---
61 y/o male bib self with c/o shakiness x 1 month, bilateral hand rash x3 days. Patient also ran out of Clonazepam. Patient denies any pain, fever or chills. Denies using any new detergents or lotions on skin. Patient is noted to have swelling to bilateral arms. Per patient he has wounds to bilateral legs that his caregiver dresses. Medical History:HTN, Anxiety NKDA
--- NOTE | 2022-07-04 10:48 | NUR ---
Dr. Clark evaluating patient at bedside.
[2022-07-04] MEDS ORDERED: HYDR25CA1 PO ×2 (10:56→11:10)
[2022-07-04] MEDS ORDERED: [UNRECOGNIZED DRUG - CODE] TP (10:56)
--- NOTE | 2022-07-04 11:14 | NUR ---
Patient discharged with v/s stable. Written and verbal after care instructions given. Patient alert, oriented and verbalized understanding of instructions. Ambulatory with steady gait. All questions addressed prior to discharge. ID band removed. Patient advised to follow up with PMD. Rx of Synalar and Vistaril given. Opportunity to ask questions provided and answered.
--- NOTE | 2022-07-04 11:15 | NUR ---
Chart checked and completed. The patient's care was reviewed and supervised by Vandana Gonzales RN.
== END 2022-07-04 11:14 | disposition home or self-care (01) ==
LOC: MED 09:50
DX: L30.1 Dyshidrosis [pompholyx] (principal); I10 Essential (primary) hypertension; F41.9 Anxiety disorder, unspecified; F17.200 Nicotine dependence, unspecified, uncomplicated; Z79.2 Long term (current) use of antibiotics; Z79.82 Long term (current) use of aspirin; Z79.899 Other long term (current) drug therapy
CPT/HCPCS: 99283

== ENCOUNTER 2022-07-30 19:37 | Emergency (ER) | payer OTHER ==
[~2022-07-30] VITALS: Ht 170.2 cm; Wt 113.4 kg
[~2022-07-30 19:37] MED LIST changes: +HYDR25CA1 PO; +[UNRECOGNIZED DRUG - CODE] TP
[2022-07-30 19:48] VITALS: BP 180/90
--- NOTE | 2022-07-30 19:52 | NUR ---
TO LOBBY A/W BED AMBULATORY
--- NOTE | 2022-07-30 20:36 | NUR ---
CALLED BY [facility], NO ANSWER.
--- NOTE | 2022-07-30 21:20 | NUR ---
SEEN AND EXAMINED BY STEPHY
[2022-07-30] MEDS ORDERED: DOXY100T9 PO (21:48)
[2022-07-30] MEDS ORDERED: ACET-8905 PO (21:48)
[2022-07-30] MEDS ORDERED: BACTO TP (21:48)
[2022-07-30] MEDS ORDERED: AMLO-3 PO (21:51)
[2022-07-30 21:57] VITALS: BP 180/90
--- NOTE | 2022-07-30 21:57 | NUR ---
Patient discharged with v/s stable. Written and verbal after care instructions given and explained. Patient alert, oriented and verbalized understanding of instructions. Ambulatory with steady gait. All questions addressed prior to discharge. ID band removed. Patient advised to follow up with PMD. Rx of NORCO, BACTROBAN, DOXYCYCLINE given. Patient educated on indication of medication including possible reaction and side effects. Opportunity to ask questions provided and answered.
== END 2022-07-30 21:57 | disposition home or self-care (01) ==
LOC: MED 19:37
DX: L05.91 Pilonidal cyst without abscess (principal); L98.429 Non-pressure chronic ulcer of back with unspecified severity; I10 Essential (primary) hypertension; F17.200 Nicotine dependence, unspecified, uncomplicated; Z79.899 Other long term (current) drug therapy; Z79.82 Long term (current) use of aspirin; Z71.6 Tobacco abuse counseling
CPT/HCPCS: 99283

== ENCOUNTER 2022-08-04 16:28 | Emergency (ER) | payer OTHER ==
[~2022-08-04] VITALS: Ht 170.2 cm; Wt 113.4 kg
[~2022-08-04 16:28] MED LIST changes: +ACET-8905 PO; +BACTO TP; +DOXY100T9 PO
[2022-08-04 16:34] VITALS: BP 192/86
--- NOTE | 2022-08-04 16:40 | NUR ---
PT AMB TO BED 11
--- NOTE | 2022-08-04 16:47 | NUR ---
61/M WALKED IN C/O BUTTOCK WOUND. PT REPORTS BEING SEEN HERE 5 DAYS AGO FOR SAME S/SX. PT IS A POOR HISTORIAN, STATES UNAWARE WHAT WAS DONE TO THE SITE. PMH: HTN, PERIPHERAL ARTERY DISEASE
[2022-08-04] MEDS ORDERED: VANCOMYCIN 2,000 MG in DEXTROSE 5% 250 ML IV ONE (17:45)
[2022-08-04] MEDS ORDERED: VANCOMYCIN PER PHARMACY MC PRN (17:45)
--- NOTE | 2022-08-04 18:32 | NUR ---
BLOOD DRAWN BY FINANCIAL SERVICES EDUCATION CONSULTANT
[2022-08-04 18:47] LABS: BASOPHILS # (AUTO) 0.1 K/uL (0.00-0.22); BASOPHILS % (AUTO) 0.7 % (0.0-2.0); EOSINOPHILS % (AUTO) 0.3 % (0.0-4.0); HEMOGLOBIN 10.4 g/dL (12.0-18.0); LYMPHOCYTES # (AUTO) 1.4 K/uL (2.0-11.5); LYMPHOCYTES % (AUTO) 12.1 % (20.5-51.1); MEAN CORPUSCULAR HEMOGLOBIN 26 pg (27-31); MEAN CORPUSCULAR HGB CONC 33 g/dL (33-37); MEAN CORPUSCULAR VOLUME 78.3 fL (80-94); MONOCYTES % (AUTO) 8.5 % (1.7-9.3); NEUTROPHILS # (AUTO) 8.9 K/uL (1.8-7.7); NEUTROPHILS % (AUTO) 78.4 % (42.2-75.2); PLATELET COUNT (AUTO) 524 K/uL (140-450); RED BLOOD CELL COUNT(AUTO) 4.08 MIL/uL (4.20-6.10); RED CELL DISTRIBUTION WIDTH 15.1 % (11.6-13.7); WHITE BLOOD COUNT (AUTO) 11.3 K/uL (4.8-10.8)
--- NOTE | 2022-08-04 18:58 | NUR ---
UNABLE TO ESTABLISH IV AT THIS TIME. LUISD MADE AWARE.
[2022-08-04 19:08] LABS: ALBUMIN 3.1 g/dL (3.4-5.0); ANION GAP 11.7 (8-16); ASPARTATE AMINOTRANSFERASE 28 U/L (15-37); CARBON DIOXIDE 31.1 mmol/L (21-32); CHLORIDE 89 mmol/L (98-107); CREATININE 1.2 mg/dL (0.6-1.3); GFR ARICAN-AMERICAN 79 mL/min (>90); GLUCOSE 117 mg/dL (74-106); POTASSIUM 3.8 mmol/L (3.5-5.1); SODIUM SERUM 128 mmol/L (136-145); TOTAL BILIRUBIN 0.3 mg/dL (0.0-1.0); UREA NITROGEN, BLOOD 25 mg/dL (7-18)
--- NOTE | 2022-08-04 20:09 | NUR ---
CALLED CT TO P/U PT . ERMD ESTABLISHED 20G L AC
--- NOTE | 2022-08-04 20:16 | NUR ---
PATIENT TAKE TO CT VIA W/C
[2022-08-04] MEDS ORDERED: VANCOMYCIN 1,000 MG VIAL ONE ×2 (21:09)
--- NOTE | 2022-08-04 21:42 | NUR ---
Dunia mccoy in [facility] - 08/04/22 at 2142 by MAYRA PATIENT RETURNED FROM CT VIA LEVAR
[2022-08-04] MEDS ORDERED: CLON2TAB PO (21:51)
--- NOTE | 2022-08-04 21:55 | NUR ---
MED REC COMPLETE
--- NOTE | 2022-08-04 21:55 | NUR ---
PATIENT BELONGING LIST COMPLETED
--- NOTE | 2022-08-05 00:58 | NUR ---
JUTE BAG SEWER CALLED. APPROVED TO BE TRANSFERRED TO FACILITY IN THE AM. WILL CALL WITH UPDATES.
[2022-08-05] MEDS ORDERED: HYDROcodone/APAP 5/325 MG 1 TAB TAB PO ONE (04:35)
--- NOTE | 2022-08-05 04:35 | NUR ---
PATIENT C/O PAIN. STEPHY NOLASCO MADE AWARE.
--- NOTE | 2022-08-05 06:20 | NUR ---
PATIENT AMBULATED TO RR
--- NOTE | 2022-08-05 07:24 | NUR ---
REPORT GIVEN TO ERIAC RUSHING. TRANSFER OF CARE
--- NOTE | 2022-08-05 07:49 | NUR ---
PT CALM AND RESTING. VITALS STABLE
--- NOTE | 2022-08-05 08:30 | NUR ---
PT REQUESTING METHADONE HE TAKES IT EVERY MORNING. PT STATES HE GETS PX THROUGH [facility]. ERMD MADE AWARE. PER DR HAMEED, VERIFY DOSAGE WITH CLINIC. [facility]: [phone]. PER COLIN AT [facility], PATIENT TAKES 80 MG LIQUID METHADONE.
--- NOTE | 2022-08-05 08:44 | NUR ---
CALLED PHARMACY FOR METHADONE ORAL SOLUTION 80MG
[2022-08-05] MEDS ORDERED: METHADONE 10 MG TAB PO ONE (08:45)
[2022-08-05] MEDS ORDERED: METHADONE HCL ORAL SOLN 10 MG/ML SOLN PO SCH (09:00)
[2022-08-05] MEDS ORDERED: KETOROLAC 15 MG/ML VIAL IVP ONE ×2 (09:50→21:40)
--- NOTE | 2022-08-05 17:33 | NUR ---
PT C/O PAIN TO THE BUTTOCK. ERMD MADE AWARE. APPLIED NONADHESIVE GAUZE TO THE SITE AT THIS TIME.
[2022-08-05] MEDS ORDERED: ACETAMINOPHEN 100 ML IV ONE (17:35)
--- NOTE | 2022-08-05 19:20 | NUR ---
Assumed care of patient. VSS. Cardiac monitoring in place. Resting in bed with no s/s distress.
--- NOTE | 2022-08-05 20:52 | NUR ---
PT AMBULATED TO RR
--- NOTE | 2022-08-05 21:13 | NUR ---
Spoke with Corby from [facility] regarding placement for patient in their facility who stated that she would follow up with her supervisor shuttle fitting.
--- NOTE | 2022-08-05 21:25 | NUR ---
SPOKE TO RICARDO- SCUBA DIVE TRAINING INSTRUCTOR. STATED THAT PLACEMENT WAS STILL PENDING DUE TO NOT HAVING PHARMACY TO GIVE METHADONE AT 9AM.
[2022-08-05] MEDS ORDERED: KETOROLAC 15 MG/ML VIAL ONE (21:43)
[2022-08-05] MEDS ORDERED: KETOROLAC 15 MG/ML VIAL IM ONE (21:55)
--- NOTE | 2022-08-05 22:04 | NUR ---
Pt with c/o 10/[address] Melo notified and orders received and carried out.
[2022-08-05 22:11] VITALS: BP 178/76
--- NOTE | 2022-08-05 23:36 | NUR ---
Pt resting in bed at this time no s/s discomfort. VSS.
--- NOTE | 2022-08-06 02:20 | NUR ---
Noted Pt IV removed and intact at bedside. Pt stated that he had pulled it out. No bleeding or swelling noted on IV site. No c/o discomfort. IV cannula and tubing thrown at proper receptacle.
--- NOTE | 2022-08-06 02:26 | NUR ---
Dressing changed on buttock wound, nonadherent dressing placed.
--- NOTE | 2022-08-06 04:30 | NUR ---
PATIETN AMBULATED TO WITH STEADY GAIT.
--- NOTE | 2022-08-06 04:43 | NUR ---
PT MOVED TO BED 9
--- NOTE | 2022-08-06 04:44 | NUR ---
Pt states he wants to leave AMA. ER Dr. Ramirez notified.
--- NOTE | 2022-08-06 04:48 | NUR ---
AMA form signed and placed in chart
--- NOTE | 2022-08-06 04:48 | NUR ---
Patient does not wish to proceed with medical care recommended by STEPHY Sunshine. Patient given information related to possible complications, up to and including , which could occur as a result of leaving hospital at this time. Patient verbalizes understanding of risks involved leaving against medical advice. Patient has signed AMA form.
== END 2022-08-06 04:48 | disposition left against medical advice (07) ==
LOC: MED 16:28
DX: L98.421 Non-pressure chronic ulcer of back limited to breakdown of skin (principal); Z20.822 Contact with and (suspected) exposure to COVID-19; L03.312 Cellulitis of back [any part except buttock and flank]; I10 Essential (primary) hypertension; F11.90 Opioid use, unspecified, uncomplicated; Z79.899 Other long term (current) drug therapy; Z79.82 Long term (current) use of aspirin
CPT/HCPCS: 36415; 71045; 74177; 80053; 83605; 84484; 85025; 85651; 86140; 87040; 87426; 96365; 96367; 96375; 99285; J1885; J3370; Q0092; Q9967

== ENCOUNTER 2023-01-02 20:04 | Emergency (ER) | payer MEDICARE, MEDICAID ==
[~2023-01-02] VITALS: Ht 170.2 cm; Wt 121.6 kg
[~2023-01-02 20:04] MED LIST changes: -AMOX-999 PO; -BACTO TP; +CLON2TAB PO; -DOXY100T9 PO; -HYDR25CA1 PO; -[UNRECOGNIZED DRUG - CODE] TP
[2023-01-02 20:37] VITALS: BP 165/77
--- NOTE | 2023-01-02 20:46 | NUR ---
Dr. Haddad examining patient.
[2023-01-02] MEDS ORDERED: ALBUTEROL SULFATE/IPRATROPIU 3 ML SOL IH ONE (20:50)
--- NOTE | 2023-01-02 20:53 | NUR ---
PT TAKEN TO BED 12
--- NOTE | 2023-01-02 20:57 | NUR ---
RT at bedside for breathing treatment.
--- NOTE | 2023-01-02 21:42 | NUR ---
X-Ray at bedside.
--- NOTE | 2023-01-02 21:45 | NUR ---
62YR OLD MALE BIB FAMILY C/O SOB . PT STATES FEELING WEAK AND SOB ALL DAY. SP02 100% ON RA. AUDIABLE WHEEZES NOTED. 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 HOB IS ELEVATED. HX OF COPD. FAMILY AT BEDSIDE NKDA COPD ASTHMA HTN
[2023-01-02 22:12] LABS: BASOPHILS % (AUTO) 0.4 % (0.0-2.0); EOSINOPHILS % (AUTO) 0.1 % (0.0-4.0); HEMOGLOBIN 10.5 g/dL (12.0-18.0); LYMPHOCYTES # (AUTO) 1.1 K/uL (2.0-11.5); LYMPHOCYTES % (AUTO) 8.4 % (20.5-51.1); MEAN CORPUSCULAR HEMOGLOBIN 25 pg (27-31); MEAN CORPUSCULAR HGB CONC 32 g/dL (33-37); MEAN CORPUSCULAR VOLUME 77.6 fL (80-94); MONOCYTES # (AUTO) 0.6 K/uL (0.8-1.0); MONOCYTES % (AUTO) 4.4 % (1.7-9.3); NEUTROPHILS % (AUTO) 86.7 % (42.2-75.2); PLATELET COUNT (AUTO) 432 K/uL (140-450); RED BLOOD CELL COUNT(AUTO) 4.25 MIL/uL (4.20-6.10); RED CELL DISTRIBUTION WIDTH 17.8 % (11.6-13.7); WHITE BLOOD COUNT (AUTO) 12.7 K/uL (4.8-10.8)
[2023-01-02 22:29] LABS: ALBUMIN 2.5 g/dL (3.4-5.0); ANION GAP 12.6 (8-16); CARBON DIOXIDE 28.5 mmol/L (21-32); CREATININE 1.2 mg/dL (0.6-1.3); POTASSIUM 4.1 mmol/L (3.5-5.1); TOTAL BILIRUBIN 0.3 mg/dL (0.0-1.0)
[2023-01-02 22:32] LABS: LIPASE 46 U/L (73-393)
[2023-01-02 23:52] LABS: APPEARANCE,URINE CLEAR (CLEAR); BILIRUBIN,URINE NEGATIVE (NEGATIVE); BLOOD, URINE NEGATIVE (NEGATIVE); COLOR,URINE YELLOW (YELLOW); LEUKOCYTE ESTERASE ,URINE NEGATIVE (NEGATIVE); NITRITE, URINE NEGATIVE (NEGATIVE); PH,URINE 8.5 (5.0-9.0); UGLUCOSE NEGATIVE (NEGATIVE)
--- NOTE | 2023-01-02 23:52 | NUR ---
PENDING LABS . PT STATES FEELING BETTER. ON BEDSIDE MONITOR. PENDING DISPO
[2023-01-03 00:13] LABS: BARBITURATE, URINE NEGATIVE ng/ml (NEG <=200); BENZODIAZEPINE, URINE NEGATIVE ng/mL (NEG <=200); CANNABINOID, URINE NEGATIVE ng/mL (NEG <=50); COCAINE, URINE NEGATIVE ng/mL (NEG <=300); OPIATE, URINE POSITIVE ng/mL (NEG <=2000); PHENCYCLIDINE SCREEN,URINE NEGATIVE ng/mL (NEG <=25)
[2023-01-03] MEDS ORDERED: predniSONE 20 MG TAB PO ONE (00:25)
[2023-01-03] MEDS ORDERED: ALBU0.0912 IH (00:27)
[2023-01-03] MEDS ORDERED: PRED20TA5 PO (00:27)
[2023-01-03 00:53] VITALS: BP 165/77
--- NOTE | 2023-01-03 00:54 | NUR ---
Patient discharged with v/s stable. Written and verbal after care instructions given and explained. Patient alert, oriented and verbalized understanding of instructions. Ambulatory with steady gait. All questions addressed prior to discharge. ID band removed. Patient advised to follow up with PMD. Rx of ALBUTEROL AND PREDNISONE given. Patient educated on indication of medication including possible reaction and side effects. Opportunity to ask questions provided and answered.
== END 2023-01-03 00:54 | disposition home or self-care (01) ==
LOC: MED 20:04
DX: R06.02 Shortness of breath (principal); R53.1 Weakness; I10 Essential (primary) hypertension; F41.9 Anxiety disorder, unspecified; F17.210 Nicotine dependence, cigarettes, uncomplicated; Z79.899 Other long term (current) drug therapy
CPT/HCPCS: 36415; 36600; 71045; 80053; 80305; 81003; 82803; 83690; 83880; 84484; 85025; 93005; 94640; 99284; J7512; Q0092

== ENCOUNTER 2023-02-17 08:46 | Emergency (ER) | payer MEDICARE, OTHER ==
[~2023-02-17] VITALS: Ht 170.2 cm; Wt 122.5 kg
[~2023-02-17 08:46] MED LIST changes: +ALBU0.0912 IH; +PRED20TA5 PO
[2023-02-17 08:48] VITALS: BP 167/73; PULSE 74; RESP 16; TEMP 98.3
--- NOTE | 2023-02-17 08:53 | NUR ---
pt ambulatory to bed 11
[2023-02-17] MEDS ORDERED: FURO-570 PO (09:23)
[2023-02-17] MEDS ORDERED: [UNRECOGNIZED DRUG - CODE] PO (09:23)
--- NOTE | 2023-02-17 09:27 | NUR ---
Patient discharged with v/s stable. Written and verbal after care instructions given and explained. Patient alert, oriented and verbalized understanding of instructions. Ambulatory with steady gait. All questions addressed prior to discharge. ID band removed. Patient advised to follow up with PMD. Rx of LASIX, POTASSIUM given. Patient educated on indication of medication including possible reaction and side effects. Opportunity to ask questions provided and answered.
== END 2023-02-17 09:27 | disposition home or self-care (01) ==
LOC: MED 08:46
DX: R60.9 Edema, unspecified (principal); I11.0 Hypertensive heart disease with heart failure; Z79.899 Other long term (current) drug therapy
CPT/HCPCS: 99283